=== PATIENT | male | born 1945 | race Caucasian/White ===

== ENCOUNTER 2017-12-20 23:50 | Emergency (ER) | payer OTHER, BC ==
[~2017-12-20] VITALS: Ht 177.8 cm; Wt 104.5 kg
[~2017-12-20 23:50] MED LIST: ASPIR 8181 M1; GLUCOPHAGE500 MG; LIPITOR40 MG PO; LOTENSIN HCT1 TABLE1; NIFEDICAL XL60 MG
[2017-12-21] MEDS ORDERED: PREDNISONE20 MG PO (01:27)
[2017-12-21 01:57] VITALS: BP 121/55
== END 2017-12-21 01:58 | disposition home or self-care (01) ==
LOC: EME 23:50
DX: T78.40XA Allergy, unspecified, initial encounter (principal); R22.0 Localized swelling, mass and lump, head; E11.9 Type 2 diabetes mellitus without complications; Z79.84 Long term (current) use of oral hypoglycemic drugs; I10 Essential (primary) hypertension; J44.9 Chronic obstructive pulmonary disease, unspecified; E78.00 Pure hypercholesterolemia, unspecified; Z87.891 Personal history of nicotine dependence
CPT/HCPCS: 71045; 80048; 84484; 85027; 94640; 99281; 99285; J2930; S0028

== ENCOUNTER 2018-01-06 06:09 | Emergency (ER) | payer OTHER, BC ==
[~2018-01-06] VITALS: Ht 177.8 cm; Wt 108.3 kg
[~2018-01-06 06:09] MED LIST changes: +PREDNISONE20 MG PO
[2018-01-06 07:29] LABS: HEMATOCRIT 47.3 % (38.0-50.0); HEMOGLOBIN 16.4 G/DL (12.5-16.6); MCH 30.8 PG (29.0-34.0); MCHC 34.7 G/DL (30.0-36.0); MCV 88.9 FL (86-99); PLATELET COUNT 206 K/uL (156-360); RBC DIS.WIDTH-CV 14.1 % (11.8-14.6); RBC DIS.WIDTH-SD 45.1 % (39-53); RED BLOOD COUNT 5.32 M/uL (4.00-5.50); WHITE BLOOD COUNT 9.5 K/uL (4.1-10.2)
[2018-01-06 08:07] LABS: CHLORIDE 100 MEQ/L (99-109); CREATININE 1.2 MG/DL (0.6-1.3); GFR ESTIMATE (CALCULATED) > 59 mL/min/ (58.99-99999); GLUCOSE 160 mg/dL (70-99); POTASSIUM 4.4 MEQ/L (3.7-5.4); SODIUM 138 MEQ/L (136-147); UREA NITROGEN (BUN) 20 mg/dL (9-23)
[2018-01-06] MEDS ORDERED: PREDNISONE10 MG PO (08:41)
[2018-01-06] MEDS ORDERED: FLEXERIL10 MG PO (08:41)
[2018-01-06] MEDS ORDERED: TRAMADOL HCL50 MG PO (08:41)
[2018-01-06 08:56] VITALS: BP 138/88
== END 2018-01-06 08:57 | disposition home or self-care (01) ==
LOC: EME 06:09
PROVIDERS: Nurse Practitioner Family
DX: M54.31 Sciatica, right side (principal); G25.81 Restless legs syndrome; J44.9 Chronic obstructive pulmonary disease, unspecified; E11.9 Type 2 diabetes mellitus without complications; I10 Essential (primary) hypertension; E78.5 Hyperlipidemia, unspecified; Z79.82 Long term (current) use of aspirin; Z87.891 Personal history of nicotine dependence
CPT/HCPCS: 80048; 85027; 99281; 99284; J3010; J7512

== ENCOUNTER 2018-01-21 22:09 | Inpatient (IN) | payer OTHER, BC ==
[~2018-01-21] VITALS: Ht 179.1 cm; Wt 104.5 kg
[~2018-01-21 22:09] MED LIST changes: +AMARYL2 MG PO; +BENICAR HCT 401 EAC1 PO; +BYSTOLIC20 MG PO; +FLEXERIL10 MG PO; +PREDNISONE10 MG PO; +TRAMADOL HCL50 MG PO
== END 2018-01-22 09:55 | disposition home or self-care (01) | DRG 552 ==
LOC: CANRESERV 22:09 → ENRESERV 22:09 → 2SOUTH 01-22 09:08 → EDSTATUS 01-22 09:36 → 2SOUTH 01-22 09:37 → SDC 01-22 14:36
DX: M54.17 Radiculopathy, lumbosacral region (principal); I48.1 Persistent atrial fibrillation; J44.9 Chronic obstructive pulmonary disease, unspecified; Z53.09 Procedure and treatment not carried out because of other contraindication; M54.5 Low back pain; M54.6 Pain in thoracic spine; R07.81 Pleurodynia; M71.38 Other bursal cyst, other site; R94.31 Abnormal electrocardiogram [ECG] [EKG]; I10 Essential (primary) hypertension; M19.90 Unspecified osteoarthritis, unspecified site; E11.9 Type 2 diabetes mellitus without complications; E78.5 Hyperlipidemia, unspecified; G47.30 Sleep apnea, unspecified; E66.9 Obesity, unspecified; Z68.32 Body mass index [BMI] 32.0-32.9, adult; Z88.2 Allergy status to sulfonamides; Z88.6 Allergy status to analgesic agent; Z91.018 Allergy to other foods; Z82.3 Family history of stroke
CPT/HCPCS: 36415; 80048; 81003; 85025; 86850; 86900; 86901

== ENCOUNTER 2018-02-19 09:42 | Day surgery (SDC) | payer OTHER, BC ==
[~2018-02-19] VITALS: Ht 177.8 cm; Wt 104.3 kg
[~2018-02-19 09:42] MED LIST changes: +LYRICA100 MG PO
[2018-02-19 10:32] VITALS: BP 164/76
[2018-02-19 11:22] LABS: HEMOGLOBIN 15.2 G/DL (12.5-16.6); MCH 29.9 PG (29.0-34.0); MCHC 34.5 G/DL (30.0-36.0); MCV 86.6 FL (86-99); PLATELET COUNT 213 K/uL (156-360); RBC DIS.WIDTH-CV 13.9 % (11.8-14.6); RBC DIS.WIDTH-SD 44.1 % (39-53); RED BLOOD COUNT 5.08 M/uL (4.00-5.50); WHITE BLOOD COUNT 11.1 K/uL (4.1-10.2)
[2018-02-19 11:49] LABS: CHLORIDE 100 MEQ/L (99-109); CREATININE 1.2 MG/DL (0.6-1.3); GFR ESTIMATE (CALCULATED) > 59 mL/min/ (58.99-99999); GLUCOSE 173 mg/dL (70-99); POTASSIUM 3.2 MEQ/L (3.7-5.4); SODIUM 139 MEQ/L (136-147); UREA NITROGEN (BUN) 29 mg/dL (9-23)
[2018-02-20 11:22] LABS: URIC ACID 11.9 mg/dL (3.1-9.2)
== END 2018-02-19 12:00 | disposition home or self-care (01) ==
LOC: SDC 09:42 → 2SOUTH 09:42 → SDC 12:00 → 2SOUTH 12:07 → EDSTATUS 12:55 → 2SOUTH 16:04 → EDSTATUS 17:22
PROVIDERS: Neurological Surgery
DX: M54.16 Radiculopathy, lumbar region (principal); E11.621 Type 2 diabetes mellitus with foot ulcer; L97.509 Non-pressure chronic ulcer of other part of unspecified foot with unspecified severity; Z53.09 Procedure and treatment not carried out because of other contraindication
CPT/HCPCS: 80048; 82948; 84550; 85027; 86850; 86900; 86901

== ENCOUNTER 2018-03-03 05:48 | Emergency (ER) | payer OTHER, BC ==
[~2018-03-03] VITALS: Ht 177.8 cm; Wt 104.0 kg
[2018-03-03 08:11] LABS: APPEARANCE CLEAR ((CLEAR)); BILIRUBIN NEGATIVE; BLOOD NEGATIVE; COLOR YELLOW ((YELLOW)); GLUCOSE (STRIP) NEGATIVE; KETONES NEGATIVE; LEUKOCYTES NEGATIVE; NITRITE NEGATIVE; PROTEIN (STRIP) NEGATIVE; SPECIFIC GRAVITY 1.017 (1.000-1.030); UCUL ADDED? NO; UROBILINOGEN 0.2 MG/DL (0.2-1.0)
[2018-03-03 08:17] LABS: HEMATOCRIT 38.4 % (38.0-50.0); HEMOGLOBIN 13.3 G/DL (12.5-16.6); MCH 30.7 PG (29.0-34.0); MCHC 34.6 G/DL (30.0-36.0); MCV 88.7 FL (86-99); PLATELET COUNT 196 K/uL (156-360); RBC DIS.WIDTH-CV 14.5 % (11.8-14.6); RBC DIS.WIDTH-SD 46.7 % (39-53); RED BLOOD COUNT 4.33 M/uL (4.00-5.50); WHITE BLOOD COUNT 10.6 K/uL (4.1-10.2)
[2018-03-03 08:28] LABS: CHLORIDE 109 mEq/L (99-109); POTASSIUM 3.5 mEq/L (3.7-5.4); SODIUM 142 mEq/L (136-147)
[2018-03-03 08:29] LABS: GLUCOSE 147 mg/dL (70-99)
[2018-03-03 08:33] LABS: CREATININE 1.1 mg/dL (0.6-1.3); GFR ESTIMATE (CALCULATED) > 59 mL/min/ (58.99-99999)
[2018-03-03 08:34] LABS: UREA NITROGEN (BUN) 22 mg/dL (9-23)
[2018-03-03] MEDS ORDERED: ANTIVERT25 MG PO (08:36)
[2018-03-03 09:31] VITALS: BP 112/77
== END 2018-03-03 09:31 | disposition left against medical advice (07) ==
LOC: EME 05:48
PROVIDERS: Physician Assistant
DX: R42 Dizziness and giddiness (principal); W18.39XA Other fall on same level, initial encounter; J44.9 Chronic obstructive pulmonary disease, unspecified; E78.00 Pure hypercholesterolemia, unspecified; E11.9 Type 2 diabetes mellitus without complications; Z88.5 Allergy status to narcotic agent; Z87.891 Personal history of nicotine dependence; Z79.82 Long term (current) use of aspirin
CPT/HCPCS: 70450; 71046; 80048; 81003; 85027; 93005; 99281; 99285; J7030; J8540

== ENCOUNTER 2018-04-02 22:02 | Inpatient (IN) | payer OTHER, BC ==
[~2018-04-02] VITALS: Ht 177.8 cm; Wt 104.5 kg
[~2018-04-02 22:02] MED LIST changes: +ANTIVERT25 MG PO; -ASPIR 8181 M1; +ASPIR 8181 M1 PO
[2018-04-03 05:53] LABS: HEMATOCRIT 44.1 % (38.0-50.0); HEMOGLOBIN 15.2 G/DL (12.5-16.6); MCH 30.2 PG (29.0-34.0); MCHC 34.5 G/DL (30.0-36.0); MCV 87.7 FL (86-99); PLATELET COUNT 290 K/uL (156-360); RBC DIS.WIDTH-SD 45.1 % (39-53); RED BLOOD COUNT 5.03 M/uL (4.00-5.50)
[2018-04-03 06:01] VITALS: BP 133/89
[2018-04-03 06:06] LABS: CHLORIDE 99 mEq/L (99-109); POTASSIUM 3.7 mEq/L (3.7-5.4); SODIUM 140 mEq/L (136-147)
[2018-04-03 06:07] LABS: GLUCOSE 151 mg/dL (70-99)
[2018-04-03 06:11] LABS: CREATININE 1.6 mg/dL (0.6-1.3); GFR ESTIMATE (CALCULATED) 45 mL/min/ (58.99-99999)
[2018-04-03 06:12] LABS: UREA NITROGEN (BUN) 31 mg/dL (9-23)
[2018-04-03 06:22] LABS: APPEARANCE SL.HAZY ((CLEAR)); BILIRUBIN NEGATIVE; BLOOD NEGATIVE; COLOR YELLOW ((YELLOW)); GLUCOSE (STRIP) NEGATIVE; KETONES NEGATIVE; LEUKOCYTES NEGATIVE; NITRITE NEGATIVE; PROTEIN (STRIP) NEGATIVE; UROBILINOGEN 0.2 MG/DL (0.2-1.0)
[2018-04-03 06:39] LABS: BACTERIA NONE SEEN /HPF; EPITHELIAL CELLS NONE SEEN /HPF; HYALINE CASTS 15-20 /LPF; MUCUS 3+ /LPF; RED BLOOD CELLS 20-30 /HPF (0-5); WHITE BLOOD CELLS 0-5 /HPF (0-5)
[2018-04-03 06:59] LABS: BASOPHIL (%) 0.5 % (0-1); BASOPHIL COUNT 0.1 K/uL (0-0.1); EOSINOPHIL (%) 0.4 % (0-5); EOSINOPHIL COUNT 0.1 K/uL (0-0.3); HEMATOCRIT 42.4 % (38.0-50.0); HEMOGLOBIN 14.5 G/DL (12.5-16.6); IMMATURE GRANULOCYTE (%) 0.5 % (0.0-0.7); LYMPHOCYTE (%) 10.4 % (15-42); LYMPHOCYTE COUNT 1.6 K/uL (1.0-2.8); MCHC 34.2 G/DL (30.0-36.0); MCV 87.8 FL (86-99); MONOCYTE (%) 10.9 % (3-12); MONOCYTE COUNT 1.6 K/uL (0-0.8); NEUTROPHIL (%) 77.3 % (45-76); NEUTROPHIL COUNT 11.6 K/uL (1.8-6.4); RBC DIS.WIDTH-CV 14.1 % (11.8-14.6); RBC DIS.WIDTH-SD 45.2 % (39-53); RED BLOOD COUNT 4.83 M/uL (4.00-5.50)
[2018-04-03 07:26] LABS: PLAT.SUFFICIENCY ADEQUATE; PLATELET CLUMPS PRESENT - PLATELET COUNT APPEARS ADQ.; PLATELET COUNT UNABLE TO REPORT K/uL (156-360)
== END 2018-04-03 07:35 | disposition home or self-care (01) | DRG 552 ==
LOC: CANRESERV 22:02 → ENRESERV 22:02 → 2SOUTH 04-03 05:09
PROVIDERS: Anesthesiology; Neurological Surgery
DX: M54.17 Radiculopathy, lumbosacral region (principal); M71.38 Other bursal cyst, other site; Z53.09 Procedure and treatment not carried out because of other contraindication; D72.829 Elevated white blood cell count, unspecified; J44.9 Chronic obstructive pulmonary disease, unspecified; I10 Essential (primary) hypertension; I48.91 Unspecified atrial fibrillation; E11.9 Type 2 diabetes mellitus without complications; E78.00 Pure hypercholesterolemia, unspecified; Z87.891 Personal history of nicotine dependence; Z88.5 Allergy status to narcotic agent; Z79.82 Long term (current) use of aspirin
CPT/HCPCS: 80048; 81003; 82948; 85025; 85027; 86850; 86900; 86901; J0330; J0690; J2250; S0020